=== PATIENT | female | born 1970 | race Caucasian/White ===

== ENCOUNTER 2023-11-22 19:53 | Emergency (ER) | payer SELFPAY ==
[2023-11-22 19:59] VITALS: BP 139/92; PULSE 62; RESP 18; TEMP 36.8; O2SAT 98
--- NOTE | 2023-11-22 20:09 | ED.GENADUL_ITS ---
Discharge Plan Disposition Patient Disposition: Home Condition: Stable Discharge Details Clinical Impression: Skin lesion Primary Care Provider: Claudio Jean ED Provider: Pj Walker Home Meds and New Rx's Prescriptions: New cephalexin 500 mg tablet 500 mg PO QID Qty: 28 0RF Continued ibuprofen 200 mg capsule 400 mg PO Q6H PRN (Reason: pain) Patient Comments: Patient reports usually only needing one dose to relief pain Discharge Instructions Additional Instructions: Your lesion on your hand is consistent with a cyst If not better within a week follow-up with your primary care provider Feel more ill or have severe worsening pain or new symptoms such as high fevers return to the emergency department for reevaluation HPI General Mode of arrival: ambulatory . Date/Time Provider Initiated Documentation: 11/22/23 20:06 . Limitations to Documentation: no limitations . Information obtained by: patient . History of Present Illness 53 year old F presents to the emergency department with the chief complaint of Lesion on left hand, described as mild, Patient started experiencing this hour(s) (1) and it has been constant. No relieving factors improve symptom(s), No exacerbating factors reported . Patient notes no other symptoms.. Patient did receive the following treatments prior to arrival, none Related Data Home Medications Medication Instructions Recorded Confirmed ibuprofen 200 mg capsule 400 mg PO Q6H PRN pain 08/20/23 08/20/23 cephalexin 500 mg tablet 500 mg PO QID #28 tabs 11/22/23 Previous Rx's Medication Instructions Recorded cephalexin 500 mg tablet 500 mg PO QID #28 tabs 11/22/23 Allergies Allergy/AdvReac Type Severity Reaction Status Date / Time No Known Allergies Allergy Verified 08/20/23 15:35 General Stated Complaint: RashLesion REJI: 4 Review of Systems All systems reviewed & are unremarkable except as noted in HPI and below Constitutional Constitutional: Denies chills, Denies fever(s) and Denies weakness Cardiovascular Cardiovascular: Denies chest pain and Denies dyspnea Respiratory Respiratory: Denies dyspnea Gastrointestinal Gastrointestinal: Denies abdominal pain, Denies nausea and Denies vomiting Musculoskeletal Musculoskeletal: Denies joint swelling Neurologic Neurologic: Denies weakness Exam Const General: no acute distress Orientation: alert HENMT Head: normal to inspection Ears: external ears normal General nose exam: external nose normal Mouth: moist mucous membranes Eyes General: appearance normal, both eyes and all related structures Neck Neck: normal visual inspection Resp Effort & Inspection: normal respiratory effort and able to speak in complete sentences Cardio Rate: regular rate Neuro General: patient alert and patient oriented x3 Extrem General: full ROM and capillary refill normal Psych Mental Status: mental status grossly normal Course Vital Signs Vital signs: Vital Signs Temperature 36.8 C 11/22/23 19:59 Pulse 62 11/22/23 19:59 Respiratory Rate 18 11/22/23 19:59 Blood Pressure 139/92 H 11/22/23 19:59 Pulse Oximetry 98 11/22/23 19:59 Temperature 36.8 C 11/22/23 19:59 Pulse 62 11/22/23 19:59 Respiratory Rate 18 11/22/23 19:59 Respiratory Effort Normal 11/22/23 20:04 Blood Pressure 139/92 H 11/22/23 19:59 Pulse Oximetry 98 11/22/23 19:59 Medical Decision Making 53-year-old female comes in after she noticed a painful lesion on her left hand while at work tonight. She says she felt well all day and then noticed this while cleaning her room. [place] any fevers or systemic symptoms. She is alert and oriented x 4 on arrival and appears well in no distress. She has left hand proximal to the thumb on the posterior part of her hand has a 0.5 cm nodule with mild erythema over it, no fluctuance or severe tenderness. Suspect this has no findings to suggest abscess. Given the mild erythema will also treat with antibiotics for possible overlying cellulitis. There is no fluctuance, full range of motion of the hand and sensation is intact. Do not feel any imaging or lab work indicated. Will start her on cephalexin and advised to follow-up with her PCP if not improving within a week and return precautions given Differential Diagnosis Differential Diagnosis: Cyst, sebaceous cyst, cellulitis Quality:SDOH Health Related Social Needs: No Data to Display PFSH All Active Problems (Updated 11/22/23 @ 20:12 by Pj Walker MD) Skin lesion (Acute) Segmental and somatic dysfunction of pelvic region (Acute) Segmental and somatic dysfunction of sacral region (Acute) Segmental and somatic dysfunction of lumbar region (Acute) PTSD (post-traumatic stress disorder) (Acute) Other psychoactive substance dependence, in remission (Acute) Depression (Chronic) Hepatitis C (Chronic) Biopsy negative in 2014 Anxiety (Chronic) Medical History (Updated 11/22/23 @ 20:12 by Pj Walker MD) History of abnormal cervical Pap smear Surgical History (Updated 08/29/22 @ 10:40 by Janice Zepeda) Status post repair of fracture of orbit (2009) [facility] - [facility] Family History (Updated 08/29/22 @ 10:30 by Janice Zepeda) Maternal Grandmother Breast cancer Sister Breast cancer Maternal Grandfather Prostate cancer Mother Cancer liver Depression Maternal Aunt Cancer brain Depression Sister Cancer Hodgkins Lymphoma Social History (Updated 08/17/23 @ 12:58 by Valerie Rodriguez) Smoking/Tobacco Use Status: Current every day Tobacco Type: cigarettes Tobacco: How many years used: 40 Quit status: not considering quitting Smoking risk assessment performed?: Yes Alcohol Intake: never Drug use: Daily Substance use type: marijuana Adopted: No Caregiver/Support person: No Foster care: No Housing: apartment Number of Children: 4 Communication Needs: None Education Level: vocational Do you need help understanding health information?: Rarely current occupation: Guest Service Representative. Pets and animals: Yes (1) Pets and animals: cat(s) Sexually active: No Do you think of yourself as: bisexual Current gender identity: female What is your relationship status?: How often do you talk on the phone with friends or family?: three or more times per week How often do you get together with friends or relatives?: once per week Do you belong to any clubs or organized social groups?: no Panel score (0-1 are the most socially isolated patients): 1 What type of physical activity do you participate in: none Sepideh/Alevism: Spiritual Special sepideh needs: No Seatbelt use: always Helmet use: Yes Helmet use: always Drive intox or ride w/intox airport driver: No
[2023-11-22] MEDS: Cephalexin 500 MG CAP PO (20:26)
[2023-11-22] MEDS: Ibuprofen 600 MG TAB PO (20:26)
== END 2023-11-22 20:26 | disposition home or self-care (01) ==
PROVIDERS: Emergency Provider Emergency Medicine; PCP Family Medicine
DX: L98.9 Disorder of the skin and subcutaneous tissue, unspecified (principal)
CPT/HCPCS: 99283

== ENCOUNTER 2025-01-22 14:55 | Outpatient (REF) | payer OTHER, SELFPAY ==
[2025-01-23 12:17] LABS: Chlamydia Result Negative (Negative); GC Result Negative (Negative)
== END 2025-01-22 14:56 | disposition home or self-care (01) ==
LOC: LBN 14:55
PROVIDERS: PCP Family Medicine; Visit Provider Family Medicine
DX: Z20.2 Contact with and (suspected) exposure to infections with a predominantly sexual mode of transmission (principal)
CPT/HCPCS: 87491; 87591

== ENCOUNTER 2025-01-23 01:08 | Outpatient (CLI) | payer OTHER, SELFPAY ==
[2025-01-23 19:18] LABS: HIV-1/2 Ag & Ab Screen Negative (Negative)
[2025-01-23 19:37] LABS: Hepatitis B Surface Ag Negative (Negative)
[2025-01-23 20:06] LABS: Hep A Total Ab w Rflx IgM Positive (Negative)
[2025-01-23 20:07] LABS: Hepatitis C Ab w Rflx HCV PCR Reactive (Negative)
[2025-01-26 08:55] LABS: Hep A Antibody IgM Negative (Negative)
[2025-01-26 11:19] LABS: HSV Type 1 Ab, IgG Positive (Negative); HSV Type 2 Ab, IgG Positive (Negative)
[2025-01-26 11:34] LABS: Syphilis Serology (RPR) Negative (Negative)
[2025-01-26 11:39] LABS: HCV RNA Detection Quantitative 3520000 IU/mL (Undetected); HCV RNA Qualitative Detected (Undetected)
== END 2025-01-23 01:09 | disposition home or self-care (01) ==
LOC: LBO 01:09
PROVIDERS: PCP Family Medicine; Visit Provider Family Medicine
DX: Z11.3 Encounter for screening for infections with a predominantly sexual mode of transmission (principal)
CPT/HCPCS: 36415; 86709; 86803; 87340; 87389; 87522; 86592; 86695; 86696